=== PATIENT | female | born 1950 | race Caucasian/White ===

== ENCOUNTER 2022-09-10 09:57 | Outpatient (CLI) | payer MEDICARE | END 2022-09-10 09:58 | disposition home or self-care (01) | LOC: CSHMRI 09:57 | PROVIDERS: ATTEND Radiology Radiation Oncology | DX: C79.31 Secondary malignant neoplasm of brain (principal); C34.90 Malignant neoplasm of unspecified part of unspecified bronchus or lung; Z98.890 Other specified postprocedural states; G93.89 Other specified disorders of brain; G93.9 Disorder of brain, unspecified | CPT/HCPCS: 70553 ==